=== PATIENT | male | born 1970 | race African-American/Black ===

== ENCOUNTER 2022-03-29 02:40 | Emergency (ER) | payer OTHER ==
[~2022-03-29] VITALS: Ht 188 cm; Wt 91.0 kg
[2022-03-29] MEDS ORDERED: ONDANSETRON HCL 4MG/2ML INJ IV STA (03:02)
[2022-03-29] MEDS ORDERED: SODIUM CHLORIDE 0.9% 1,000 ML IV ONE (03:15)
[2022-03-29 03:20] LABS: HEMATOCRIT. 42.6 % (42.0-52.0); HEMOGLOBIN. 14.2 g/dL (14.0-18.0); MEAN CORPUSCULAR HEMOGLOBIN 33.6 pg (28.0-32.0); MEAN CORPUSCULAR VOLUME 100.8 fL (80.0-94.0); MEAN PLATELET VOLUME 10.8 fl (7.4-10.4); PLATELET 127 x1000/uL (130-400); RED BLOOD CELL COUNT 4.23 mill/uL (4.7-6.1); RED CELL DISTRIBUTION WIDTH 13.6 % (11.6-14.6)
[2022-03-29 03:26] LABS: CHLORIDE 90 mEq/L (98-107)
[2022-03-29 03:36] LABS: ETHANOL BLOOD < 10 mg/dL
[2022-03-29 04:15] LABS: PLATELET ESTIMATE NORMAL
[2022-03-29 04:52] LABS: *AMPHETAMINES SCREEN URINE NEGATIVE (NEGATIVE); *BARBITURATES SCREEN URINE NEGATIVE (NEGATIVE); *BENZODIAZEPINES SCREEN URINE NEGATIVE (NEGATIVE); *COCAINE SCREEN URINE NEGATIVE (NEGATIVE); CANNABINOID URINE SCREEN NEGATIVE (NEGATIVE); METHADONE URINE SCREEN NEGATIVE (NEGATIVE); OPIATES URINE SCREEN NEGATIVE (NEGATIVE); PHENCYCLIDINE URINE SCREEN NEGATIVE (NEGATIVE)
[2022-03-29 05:00] VITALS: BP 150/104
== END 2022-03-29 05:48 | disposition home or self-care (01) ==
LOC: ER 02:40 → CANBEDREQ 03-31 00:41
DX: R56.9 Unspecified convulsions (principal); I10 Essential (primary) hypertension
CPT/HCPCS: 36415; 70450; 71045; 80053; 80305; 80320; 84484; 85025; 93005; 96361; 96374; 99285; J2405; J7030; G0480